=== PATIENT | female | born 1985 | race African-American/Black ===

== ENCOUNTER 2021-03-23 12:43 | Emergency (ER) | payer BC, SELFPAY ==
--- NOTE | ~2021-03-23 | XR_ITS ---
EXAMINATION: XR ankle LT min 3V EXAM DATE: 03/23/2021 13:08 INDICATION: Initial encounter following injury, with pain of the left ankle. TECHNIQUE: Left ankle frontal, lateral and oblique projections obtained and reviewed. There is no pr ior study for comparison. FINDINGS: The left ankle mortise appears intact. There are no acute fractures or dislocations ident ified. There is no subcutaneous gas. The soft tissue is unremarkable. There are no radiopaque for eign bodies. IMPRESSION: No acute osseous findings. Reviewed, dictated and finalized at location B. [facility] IMPRESSION: No acute osseous findings.
[2021-03-23 13:05] VITALS: BP 133/76; PULSE 79; RESP 16; TEMP 37.7; O2SAT 99
--- NOTE | 2021-03-23 13:16 | PC.NURSE ---
PT DECLINED WHEELCHAIR TO RADIOLOGY AND ROOM
--- NOTE | 2021-03-23 13:53 | ED.LOWEXIN ---
HPI - Extremity Injury (Lower) General Chief Complaint: Extremity Injury, Lower Stated Complaint: left ankle Source: patient, RN notes reviewed and old records reviewed Mode of arrival: ambulatory Limitations: no limitations History of Present Illness HPI Narrative: 35 year old female who presents to [facility] with complaints of injury to her left ankle at work on Friday. Patient states that she was waling up steps carrying a tray of food and she twisted her ankle with pain continuing to lateral aspect of her left ankle with minimal swelling to the left ankle and dorsal foot with no bruising noted. Patient reports that she has been taking Tylenol and has been applying ice to her ankle and foot. Patient is ambulatory on arrival with limping gait noted. MD complaint: ankle injury (left) Onset (ago): day(s) (friday 2 days ago) Type of Injury: other (twisting) Place: work Related Data Home Medications Medication Instructions Recorded Confirmed No Home Medications 03/23/21 03/23/21 Allergies Allergy/AdvReac Type Severity Reaction Status Date / Time metoclopramide [From Reglan] Allergy Hives Verified 03/23/21 13:13 Review of Systems Review of Systems: CONSTITUTIONAL: Denies fever, chills, or sweats. EYES: Denies visual changes, redness, or discharge. ENT: Denies rhinorrhea, congestion, sore throat, or otalgia. CARDIOVASCULAR: Denies chest pain, palpitations, or edema. RESPIRATORY: Denies cough or dyspnea. GASTROINTESTINAL: Denies abdominal pain, nausea, vomiting, or diarrhea. GENITOURINARY: Denies dysuria or hematuria. SKIN: Denies rash or itching. MUSCULOSKELETAL: Denies back pain,positive for left lateral ankle joint pain, or myalgia. NEUROLOGIC: Denies headache, numbness, or weakness. PSYCHIATRIC: Denies anxiety or depression. All systems reviewed & are unremarkable except as noted in HPI and below PMFSH Past Medical History Medical History (Updated 03/24/21 @ 21:46 by Carmencita Nunez NP) No significant past medical history Surgical History Surgical History (Updated 03/24/21 @ 21:47 by Carmencita Nunez NP) History of cholecystectomy Previous section x5 Family History Family History (Updated 03/24/21 @ 21:47 by Carmencita Nunez NP) Other Family history non-contributory Social History Social History (Updated 03/24/21 @ 21:48 by Carmencita Nunez NP) Smoking status: Current every day smoker Tobacco type: cigarettes Alcohol intake: current Alcohol use details: rare social Substance use: unknown Living arrangements: with family Gender identity (if verbalized by the patient): Female Comments At time of signature, agree with nursing past medical, surgical, social and family history. There is no relevant family history pertinent to the presenting complaint Exam Narrative: GENERAL: Well-appearing, well-nourished, and in no acute distress. HEAD: Normocephalic, atraumatic. EYES: PERRLA and EOMI. ENT: Nares clear, no rhinorrhea or epistaxis. Mucous membranes moist.TM's normal with good light reflex, throat pink with no lesions or exudates, no tonsil enlargement NECK: Supple.no lymphadenopathy CHEST: Clear to auscultation. No respiratory distress.SAO2 99% on room air HEART: Regular rate and rhythm. No murmur heard. Normal peripheral pulses. ABDOMEN: Soft, nontender, nondistended, normal active bowel sounds. EXTREMITIES: Normal range of motion. No edema.Exception noted to pain to lateral aspect of left ankle wih trace amount of edema noted, no bruising noted, pulse strong to left foot with foot warm to touch. increase pain noted on hyperflexion of foot, no pain to heel area. SKIN: Warm, dry, no rash. NEURO: No focal deficits. Alert and oriented x3. Course Vital Signs Vital signs: Vital Signs Temperature 37.7 C H 03/23/21 13:05 Pulse Rate 79 03/23/21 13:05 Respiratory Rate 16 03/23/21 13:05 Blood Pressure 133/76 03/23/21 13:05 Pulse Oximetry 99
== END 2021-03-23 14:15 | disposition home or self-care (01) ==
PROVIDERS: Emergency Provider Registered Nurse
DX: S93.402A Sprain of unspecified ligament of left ankle, initial encounter (principal); S96.912A Strain of unspecified muscle and tendon at ankle and foot level, left foot, initial encounter; F17.200 Nicotine dependence, unspecified, uncomplicated; X50.0XXA Overexertion from strenuous movement or load, initial encounter; Y99.0 Civilian activity done for income or pay
CPT/HCPCS: 73610; 99213; G0463